=== PATIENT | female | born 1960 ===

== ENCOUNTER 2017-07-21 20:18 | Emergency (ER) | payer MEDICAID, MEDICARE, OTHER ==
[2017-07-21 20:18] VITALS: BMI 28.3
[2017-07-21 20:26] VITALS: BP 157/67; PULSE 85; RESP 17; TEMP 97.7; O2SAT 99
--- NOTE | 2017-07-21 20:33 | ED PDOC ---
Lower Extremity Pain/Injury Time Seen by Provider: 07/21/17 20:33 Chief Complaint (Nursing): Lower Extremity Problem/Injury Chief Complaint (Provider): foot pain History Per: Patient Past Medical History Vital Signs: Last Vital Signs Temp 97.7 F 07/21/17 20:20 Pulse 85 07/21/17 20:20 Resp 17 07/21/17 20:20 BP 157/67 H 07/21/17 20:20 Pulse Ox 99 07/21/17 20:20 - Medical History PMH: Asthma, Bronchitis, Depression, HTN (NO MEDS PER PT) Denies: Anxiety, Bipolar Disorder, Chronic Kidney Disease - Family History Family History: States: Unknown Family Hx - Immunization History Hx Tetanus Toxoid Vaccination: No Hx Influenza Vaccination: Yes Hx Pneumococcal Vaccination: No - Home Medications Home Medications: Ambulatory Orders Medication Instructions Recorded Albuterol HFA [Ventolin HFA 90 1 - 2 puff IH Q6H PRN #1 inhaler 06/23/17 mcg/actuation (8 g)] Nitrofurantoin Macrocrystals 1 cap PO BID #14 cap 07/06/17 [Macrobid] - Allergies Allergies/Adverse Reactions: Allergies Allergy/AdvReac Type Severity Reaction Status Date / Time No Known Allergies Allergy Verified 07/06/17 21:27 - ECG O2 Sat by Pulse Oximetry: 99 Disposition - Disposition
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
== END 2017-07-21 21:50 | disposition home or self-care (01) ==
LOC: H.ER 20:18
DX: B35.3 Tinea pedis (principal); F32.9 Major depressive disorder, single episode, unspecified; I10 Essential (primary) hypertension; J45.909 Unspecified asthma, uncomplicated